=== PATIENT | female | born 1945 | race Caucasian/White ===

== ENCOUNTER 2023-06-14 14:48 | Inpatient (IN) | payer OTHER, SELFPAY ==
[2023-06-14] VITALS (8 sets, daily range): BP systolic 91–152; BP diastolic 55–85; BMI 24.2; BMI 25.3
[2023-06-14] MEDS: TYLENOL 650 MG PO (12:20)
--- NOTE | 2023-06-14 12:23 | ED.GENMED ---
History of Present Illness
General
Chief Complaint: Cold/Flu/URI Symptoms
Time Seen by Provider: 06/14/23 12:10
Travel History
Have you had any contact with someone who has COVID-19?: No
Do you have any symptoms of coronavirus? Fever > 100 degrees, chills, cough, shortness of breath, sore throat, loss of taste or smell, muscle aches, or headache?: No
History of Present Illness
History of Present Illness:
77-year-old female with history of prior stroke presents to the emergency department for evaluation of flulike symptoms developing 2 days ago. Upon awakening today she had increased difficulty breathing and her reportedly checked her pulse
oximetry and it was in the 70s, he called 911 where she was noted to be in the low 80s on room air. A DuoNeb was administered and route she arrives on supplemental oxygen. She states she feels improved and denies any shortness of breath however as
significant adventitious breath sounds. Has no prior lung history. No ill contacts at home. Does not take any anticoagulants currently
Past History
Past History
ED Past Medical History: CVA, HTN, Hypercholesterolemia and Other (gastritis)
ED Past Surgical History: Gynecological and Other (plastics)
Social History
Tobacco: Non-smoker
Alcohol: None
Drug: None
Personal:
Employment: Retired
Review of Systems
Review of Systems
Allergies reviewed?: Yes
All Other Systems: ROS reviewed and negative except as documented in HPI and ROS
Phy Exam
Physical Exam
Physical Exam:
GEN: Well appearing, NAD, WDWN
Eyes: PERRLA, EOMs intact, no scleral icterus
HENT: NCAT, oral mucosa moist
Lungs: Tachypneic, coarse rhonchi heard throughout all lung peoples
Cardiac: RRR, no M/R/G, no peripheral edema. Radial pulses 2+ bilat
Abdomen: S, NT, ND, NABS, no masses or hepatosplenomegaly
Neuro: Alert, oriented to self and place, disoriented to time and events, uncertain baseline. Dense left hemiparesis
MSK: No gross deformity or ecchymosis. No edema. No digital clubbing
Skin: No rashes, petechiae. Normal color, no pallor or jaundice.
Psych: Calm, cooperative, proper hygiene
Course
Orders/Labs/Results
Orders:
Orders
06/14/23 Lunch
NPO
Allow oral meds: Yes
Allow clear liquids: No
NPO with Ice Chips: Yes
06/14/23 12:07
Electrocardiogram (*1) Urgent
Reason for Study: Other
Other Reason for Exam: Respiratory Distress
EKG- Treatment ONCE
IV Insert/Care/Rem.- Treatment PRN
CR Chest Portable - 1 View Urgent
Comment:
Reason For Exam: respiratory distress
Reason Study Needs to be Portable: Patient Unstable
06/14/23 12:15
COVID-19 Antigen Urgent
Source: Nasal Swab
Complete Blood Count/With Diff Urgent
Comprehensive Metabolic Panel Urgent
Lactic Acid Q4H
Comment: WITH 1ST SET OF BLOOD CULTURES,CANCEL 2ND LACTIC ACID IF FIRST <2
NT-proBNP Urgent
Comment: ADD ON
Procalcitonin Urgent
PCT Algorithmm Indication: Respiratory
Blood Culture Q30M
COURTNEY Source: Blood/Venous
Specimen Description:
Comment: FROM SEPARATE SITES
Blood Culture Q30M
COURTNEY Source: Blood/Venous
Specimen Description:
Comment: FROM SEPARATE SITES
Influenza A+B Rapid Molecular Urgent
COURTNEY Source: Nasal Swab
Specimen Description:
06/14/23 12:19
Acetaminophen [Tylenol] 650 mg .ROUTE .STK-MED ONE
06/14/23 12:20
Acetaminophen [Tylenol] 650 mg PO NOW STA
06/14/23 12:21
Ipratropium/Albuterol Sulfate [Duoneb] 3 ml INH R NOW ONE
06/14/23 13:00
Add On- LAB Urgent
Tests Added?: BNP
Piperacillin/Tazo 3.375 Gram [Zosyn] 3.375 gram in 50 ml IV NOW
06/14/23 13:02
Add On- LAB Urgent
Tests Added?: procalcitonin
06/14/23 14:01
D-Dimer Urgent
06/14/23 14:02
0.9% Sodium Chloride 1000 ml [Nss] 1,000 ml IV BOLUS
06/14/23 14:15
Admit/Transfer Patient As Directed
Co-Sign Provider:
Level of Care: Inpatient admission
Assign to:: Telemetry
Physician / Group: Jesse
Diagnosis: Pneumonia with hypoxia
Reason for Telemetry: Other
Other Reason for Telemetry: Hypoxia
Date to Stop Telemetry: 06/16/23
Time to Stop Telemetry: 11:00
Reason for Hospitalization: Above
Expected length of stay greater than two midnights?: Yes
ELOS- Estimated Length of Stay in days: 2
I certify the patient meets the requirements for IP care: Yes
06/14/23 14:17
Code Status As Directed
Resuscitation Status: Full Code
06/14/23 15:29
0.9% Sodium Chloride 1000 ml [Nss] 1,000 ml IV 65 mls/hr
Acetaminophen [Tylenol] 650 mg PO Q4HPRN PRN
Albuterol [ProAIR HFA INHALER] 1 puff INH R BIDPRN PRN
Artificial Tears (Pf) [Refresh Eye Drops (Pf)] 1 drops BOTH EYES BIDPRN PRN
Aspirin Chewable [Low Strength Aspirin] 81 mg PO DAILY
Bisacodyl [Dulcolax] 10 mg RECTAL [id number] PRN
Cholecalciferol (Vitamin D3) [VITAMIN D3 (cholecalciferol)] 50 mcg PO DAILY
Gabapentin [Neurontin] 300 mg PO DAILY
Metoprolol Xl [Toprol Xl] 25 mg PO DAILY
Rosuvastatin Calcium [Crestor] 10 mg PO DAILY
Valsartan [Diovan] 80 mg PO DAILY
06/14/23 15:29
Echo 2D MMode Color/Doppler Routine
Reason for Study: hypoxia
Urinalysis Reflex To Culture Routine
Occupational Therapy Consult [Ot Eval And Treat] Routine
Physical Therapy Consult [Pt Eval And Treat] Routine
Activity Level: As Tolerated
Speech Therapy Eval & Treat Routine
Peripheral Venous Lwr Ext Bilat US [US Periph Venous LOWER Ext Juan] Urgent
Comment:
Reason For Exam: Hypoxia
DX Deep Vein Thrombosis Video Routine
06/14/23 15:38
Calcium Carbonate Chewable [Tums] 500 tablet PO HSPRN PRN
06/14/23 16:00
Ampicillin/Sulbactam 1.5 G [Unasyn] 1.5 gm 0.9% Sodium Chloride [Nss] 50 ml IV Q6H
Heparin 5,000 units SC Q8
06/14/23 18:00
Doxycycline Hyclate [Vibramycin] 100 mg 0.9% Sodium Chloride 250 ml [Nss] 250 ml IV Q12H
Pantoprazole [Protonix] 40 mg PO QPM
06/14/23 20:00
Guaifenesin [Mucinex] 600 mg PO Q12
06/14/23 22:00
Gabapentin [Neurontin] 600 mg PO HS
Oxycodone/Acetaminophen [Percocet 5/325] 1 tablet PO AMHS
Trazodone [Desyrel] 200 mg PO HS
06/15/23 06:00
BMP [Basic Metabolic Panel] IN AM
CBC/With Diff [Complete Blood Count/With Diff] IN AM
06/15/23 08:00
Duloxetine Delayed Release [Cymbalta Delayed Release] 20 mg PO DAILY
06/16/23 11:00
DC Protocol for Telemetry ONCE
Abnormal Lab Results
06/14/23 06/14/23
12:15 14:01
WBC 11.9 H 10^3/uL
(4.8-10.8)
MCH 31.8 H pg
(27.0-31.0)
MPV 10.9 H fL
(7.4-10.4)
Abs Immat Gran (auto) 0.1 H 10^3/uL
(0-0.05)
Absolute Neuts (auto) 10.4 H 10^3/uL
(1.4-6.5)
Absolute Lymphs (auto) 0.8 L 10^3/uL
(1.2-3.4)
Absolute Monos (auto) 0.7 H 10^3/uL
(0.1-0.6)
Immature Gran % 0.6 H %
(0-0.5)
Neutrophils % 86.9 H %
(42.2-75.2)
Lymphocytes % 6.4 L %
(20.5-51.1)
D-Dimer 0.96 H ug/mlFEU
(0.00-0.50)
Glucose 116 H mg/dl
(70-99)
Alkaline Phosphatase 130 H U/L
(38-126)
Procalcitonin 2.22 H* ng/ml
(0.0-0.25)
06/14/23 12:15
06/14/23 12:15
Vital Signs
Initial and Last Documented VS:
Initial Vital Signs
BP Pulse Ox
145/73 84
06/14/23 12:02 06/14/23 12:02
Last Documented Vital Signs
Temp Pulse Resp BP Pulse Ox
97.8 F 95 18 152/85 95
06/14/23 15:00 06/14/23 16:00 06/14/23 16:00 06/14/23 15:00 06/14/23 16:00
MDM/Problems Addressed
MDM/Problems Addressed:
Patient is profoundly hypoxic but does not appear to be in any distress on exam. She has coarse rhonchi heard throughout all peoples which correlates to interstitial infiltrates. Elevated procalcitonin and leukocytosis supported bacterial etiology,
given prior CVA will cover with Zosyn broadly as this will cover any aspiration related issues. Will admit to the hospital service for further management
Comment
Comment:
EKG independently interpreted by me shows a sinus tachycardia at a rate of [address] depressions likely subendocardial ischemia
Chest x-ray independently interpreted by me shows bibasilar interstitial infiltrates
*Critical Care Note
Total Time (30-74mins, 75-104mins- exclusive of procedures): Not Applicable
ED Attending Note
-
Portions of this chart may have been created with voice recognition software.� Occasional wrong word or��sound alike� substitutions may have occurred due to the inherent limitations of voice recognition software.
Discharge Plan
Departure
Patient Disposition: Admit
Date of Disposition: 06/14/23
Time of Disposition: 13:28
Presentation/result/management discussed w/ accepting MD/DO: Hospitalist
Discharge Problem:
Bilateral pneumonia, Acute hypoxemic respiratory failure
Interventions
Interventions:
*Risk Screen - Suicide Last Done: 06/14/23 12:03
*General Assessment Last Done: 06/14/23 12:03
*Neglect/Abuse Screening Last Done: 06/14/23 12:03
ED- Fall Risk Assessment Last Done: 06/14/23 12:03
*ED COVID-19 Vaccine History Last Done: 06/14/23 12:03
*Nursing Disposition Last Done: 06/14/23 15:32
ED- Pulmonary Assessment Last Done: 06/14/23 12:03
Discharge Date and Time
Discharge Date/Time: 06/14/23 15:32
[2023-06-14] MEDS: DUONEB 3 ML INH (12:31)
[2023-06-14 12:37] LABS: % Basophils 0.2 % (0-2); % Eosinophils 0.4 % (0-6); % Immature Granulocytes 0.6 % (0-0.5); % Lymphocytes 6.4 % (20.5-51.1); % Monocytes 5.5 % (1.7-9.3); % Neutrophils 86.9 % (42.2-75.2); Absolute Eosinophils 0.1 10^3/uL (0-0.7); Absolute Immature Granulocytes 0.1 10^3/uL (0-0.05); Absolute Lymphocytes 0.8 10^3/uL (1.2-3.4); Absolute Monocytes 0.7 10^3/uL (0.1-0.6); Absolute Neutrophils 10.4 10^3/uL (1.4-6.5); Hematocrit 40.2 % (37.0-47.0); Hemoglobin 13.5 g/dL (12.0-16.0); Mean Corp Hgb Conc. 33.6 g/dL (33.0-37.0); Mean Corpuscular Hgb 31.8 pg (27.0-31.0); Mean Corpuscular Volume 94.6 fL (81.0-99.0); Mean Platelet Volume 10.9 fL (7.4-10.4); Nucleated Red Blood Cells % 0 %; Platelet Count 177 10^3/uL (130-400); Red Blood Cell Count 4.25 10^6/uL (4.20-5.40); Red Cell Dist. Width 12.5 % (11.5-14.5); White Blood Cell Count 11.9 10^3/uL (4.8-10.8)
[2023-06-14 12:45] LABS: COVID-19 Antigen Negative (Negative)
[2023-06-14 12:48] LABS: Lactic Acid 1.8 mmol/L (0.7-2.0)
[2023-06-14 12:54] LABS: ALT (SGPT) 23 U/L (0-35); AST (SGOT) 34 U/L (14-36); Albumin 4.5 g/dl (3.5-5.0); Alkaline Phosphatase 130 U/L (38-126); Blood Urea Nitrogen 15 mg/dl (7-17); Calcium 9.2 mg/dl (8.4-10.2); Carbon Dioxide 27 mmol/L (22-30); Chloride 99 mmol/L (98-107); Estimated Creatinine Clearance 47 ml/min; Glucose 116 mg/dl (70-99); Sodium 136 mmol/L (135-145); Total Bilirubin 0.9 mg/dl (0.2-1.3); Total Protein 7.7 g/dl (6.3-8.2); eGFR > 60.00
[2023-06-14] MEDS: ZOSYN 50 IV (13:11)
[2023-06-14 13:34] LABS: NT-proBNP 1200 pg/ml
[2023-06-14 13:38] LABS: Procalcitonin 2.22 ng/ml (0.0-0.25)
[2023-06-14] MEDS: NSS 1000 IV ×2 (14:04→17:46)
[2023-06-14 14:21] LABS: D-Dimer 0.96 ug/mlFEU (0.00-0.50)
--- NOTE | 2023-06-14 14:59 | HPS.HSE ---
Family Physician
-
Family Physician: Otis Hernández
Chief Complaint
-
Fever and chills.
Hypoxia
History of Present Illness
Patient is a 77 years old female with history of CVA 6 years ago with left hemiparesis who presents to the emergency room with complaints of fever, chills, pleuritic chest pain. History was taken from patient as well as emergency room staff.
Patient's has been interviewed over the phone in addition. Patient developed fever and chills over the last 24 hours at home. She complains of periodic chest pain. Patient's has been sick with viral illness over the last week.
She denies any loss of consciousness. Denies aspiration events (on careful questioning she denies any cough with oral intake), gastrointestinal or urinary symptoms.
Upon presentation to the emergency room her assessment was consistent with coarse bilateral breath sounds. Patient was found to be hypoxic with pulse ox in the 80s on room air. According to patient she was as low as mid 70s at home.
At the time of our interview patient is hemodynamically stable. Oxygenation improved with pulse ox mid 90s on 6 L of nasal cannula oxygen. She is not in distress.
Medical History
Past Medical History
Past Medical History: Reports Arrhythmia (Questionable paroxysmal A-fib), CVA, HTN and Hypercholesterolemia
Past Surgical History: Reports None
Social History
Tobacco: Non-smoker
Alcohol: None
Drug: Marijuana
Personal:
Living: With Family
Employment: Not Employed
Family History
Family History: Not pertinent
Allergies / Home Medications
Allergies reflects when Allergies were last updated in [employer].
Home Medications with original date entered in [employer]
Allergy/Medication List:
Allergies
Allergy/AdvReac Type Severity Reaction Status Date / Time
No Known Allergies Allergy Verified 04/09/22 12:34
Home Medications
acetaminophen 500 mg tablet (Tylenol Extra Strength) 500 - 1,500 mg PO Q4HPRN PRN mild pain 02/04/18
rosuvastatin 10 mg tablet 10 mg PO DAILY High cholesterol 02/04/18
trazodone 100 mg tablet 200 mg PO HS Sleep 02/04/18
aspirin 81 mg chewable tablet 81 mg PO DAILY Blood clot prevention/tx 05/09/21
gabapentin 300 mg capsule 300 mg PO DAILY Pain 05/09/21
gabapentin 300 mg capsule 600 mg PO HS Pain 05/09/21
metoprolol succinate 25 mg tablet,extended release 24 hr 25 mg PO DAILY Blood pressure 05/09/21
omeprazole 20 mg capsule,delayed release 20 mg PO QPM Gastrointestinal issue 05/09/21
oxycodone-acetaminophen 5 mg-325 mg tablet 1 tab PO AMHS Pain 05/09/21
valsartan 80 mg tablet 80 mg PO DAILY Blood pressure 05/09/21
bisacodyl 10 mg rectal suppository (Dulcolax (bisacodyl)) 10 mg MN [id number] PRN No BM for 2 Days 04/09/22
albuterol sulfate 90 mcg/actuation aerosol inhaler 1 puff inhalation R BIDPRN PRN sob 02/20/23
calcium carbonate 500 mg calcium (1,250 mg) chewable tablet 500 mg PO HSPRN PRN heartburn 02/20/23
cholecalciferol (vitamin D3) 50 mcg (2,000 unit) tablet 50 mcg PO DAILY Supplement 02/20/23
duloxetine 20 mg capsule,delayed release 20 mg PO DAILY Neurological Condition 02/20/23
polyvinyl alcohol-povidone (PF) 1.4 %-0.6 % eye drops in a dropperette (Refresh Classic (PF)) 1 drp BOTH EYES BIDPRN PRN dry eyes 02/20/23
Review of Systems
-
A 12 point ROS was completed and negative except as noted: Yes
Physical Exam
Vital Signs
Vital Signs
Temp Pulse Resp BP Pulse Ox
101.2 F H 117 16 103/58 91
06/14/23 12:06 06/14/23 14:00 06/14/23 14:00 06/14/23 14:00 06/14/23 13:30
Physical Exam
General: Well Developed, Well Nourished and No Apparent Distress
HEENT: NormoCephalic, Moist mucous membranes and Atraumatic
Respiratory: Clear
Cardiac: S1/S2 and Regular Rhythm; No Murmur or Rub
GI: Soft, Non Tender, Non Distended and Normal Bowel Sounds; No Organomegaly
Rectal: Deferred by Provider
Musculoskeletal: No Clubbing, No Cyanosis and No Edema
Skin: No Rash
Neuro: Awake, Alert, Oriented, Facial Droop and Other (Left hemiparesis)
Psych: Calm
Laboratory Results
-
06/14/23 12:15
06/14/23 12:15
Laboratory Results
Lactic Acid Cancelled 06/14/23 16:15
Total Bilirubin 0.9 mg/dl (0.2-1.3) 06/14/23 12:15
AST 34 U/L (14-36) 06/14/23 12:15
ALT 23 U/L (0-35) 06/14/23 12:15
Alkaline Phosphatase 130 U/L (38-126) H 06/14/23 12:15
Impression/Plan
-
IMPRESSION:
Presentation with fever and chills. Pleuritic chest pain.
Acute hypoxic respiratory failure.
Pneumonia, suspect secondary to aspiration.
Conditions prior to admission:
CVA with left hemiparesis
Hypertension
Dyslipidemia
Chronic pain requiring opiates
PLAN:
Acute hypoxic respiratory failure.
Pulse ox on presentation 84% on room air. Improved with nasal cannula supplementation at 6 L
Suspect secondary to aspiration pneumonia.
Chest x-ray on admission consistent with bibasilar interstitial pattern infiltrate.
Patient does have chronically elevated pro CHF BNP, mildly elevated D-dimer noted. With reasonable risk for thromboembolic disease, and also significant hypoxia out of proportion on chest x-ray findings only mild bibasal consolidation check CT scan
of the chest PE protocol.
Continue oxygen supplementation. Currently on 6 L nasal cannula
Aspiration risk
Aspiration pneumonia suspected
N.p.o. pending speech evaluation
Narrow antibiotics to Unasyn with addition of doxycycline.
Mucolytic's
Aspiration precautions.
Continue IV fluids at the maintenance rate while NPO.
Elevated pro CHF BNP
No clinical evidence for volume overload.
Check echocardiogram
Monitor volume status closely
Essential hypertension
Continue preadmission regimen including metoprolol and valsartan.
Chronic pain.
Continue preadmission regimen with gabapentin, Percocet,
Continue trazodone and duloxetine
Status post CVA with left hemiparesis
Continue aspirin
Continue statin
Documented possible history of paroxysmal A-fib, in review of documented ECG patient has been in sinus rhythm.
Full code
DVT prophylaxis heparin.
--- NOTE | 2023-06-14 15:58 | PTOTSP ---
Speech Language Pathology
Pt seen for clinical bedside swallow evaluation. Pt denied any hx of dysphagia. She does not recall whether she had a VSE in the past elsewhere. Pt has had multiple admissions for respiratory issues at . This date, P.O. trials of puree,
regular solids, and thin liquids provided. Adequate mastication, bolus formation, and A-P transit noted with no oral residue. No overt signs of aspiration.
Recommend:
(1) Regular solids/thin liquids
(2) General aspiration precautions
(3) Set-up assist with tray
(4) Meds as tolerated
(5) VSE 06/15 to rule out silent aspiration given multiple admissions for respiratory issues with hx of CVA
(6) SECURITIES CONSULTANT to continue to follow
[2023-06-14] MEDS: UNASYN IV ×2 (17:46→22:48)
[2023-06-14] MEDS: DIOVAN 80 MG PO (17:52)
[2023-06-14] MEDS: CRESTOR 10 MG PO (17:52)
[2023-06-14] MEDS: TOPROL XL 25 MG PO (17:52)
[2023-06-14] MEDS: PROTONIX 40 MG PO (17:52)
[2023-06-14] MEDS: VITAMIN D3 (cholecalciferol) 50 MCG PO (17:52)
[2023-06-14] MEDS: LOW STRENGTH ASPIRIN 81 MG PO (17:52)
[2023-06-14] MEDS: HEPARIN 5000 UNITS SC ×2 (17:53→22:49)
[2023-06-14] MEDS: NEURONTIN 300 MG PO (17:53)
[2023-06-14] MEDS: VIBRAMYCIN 260 MG IV (18:51)
--- NOTE | 2023-06-14 19:49 | PTCARENOTE ---
Pt was brought up to [address] [place], [place] [id number]. room familiarized, call ames within place. as i was doing patients admission, patient stated that she was feeling depressed and suicidal within the last few weeks. Dr. Molina was notified and patient was placed on
a one to one per protocol. pt moved to a private room to accommodate situation.
[2023-06-14] MEDS: PERCOCET 5/325 1 TABLET PO (21:08)
[2023-06-14] MEDS: NEURONTIN 600 MG PO (21:08)
[2023-06-14] MEDS: MUCINEX 600 MG PO (21:08)
[2023-06-14] MEDS: DESYREL 200 MG PO (21:08)
--- NOTE | 2023-06-14 23:53 | PTCARENOTE ---
2 RNs went through patient belongings with patient permission. Patient clothing noted to be in bag. Belonging bag placed in closet. Check performed at 1900 on 06/14/23.
[2023-06-15] VITALS (7 sets, daily range): BP systolic 94–157; BP diastolic 59–95; PULSE 98; O2SAT 98; BMI 25.1
[2023-06-15] MEDS: TYLENOL 650 MG PO ×2 (01:43→17:34)
[2023-06-15] MEDS: UNASYN IV ×4 (04:21→21:23)
[2023-06-15] MEDS: VIBRAMYCIN 260 MG IV ×2 (05:17→18:35)
[2023-06-15] MEDS: MUCINEX 600 MG PO ×2 (08:43→20:18)
[2023-06-15] MEDS: DIOVAN 80 MG PO (08:43)
[2023-06-15] MEDS: PERCOCET 5/325 1 TABLET PO ×2 (08:43→21:15)
[2023-06-15] MEDS: LOW STRENGTH ASPIRIN 81 MG PO (08:43)
[2023-06-15] MEDS: NEURONTIN 300 MG PO (08:43)
[2023-06-15] MEDS: CRESTOR 10 MG PO (08:43)
[2023-06-15] MEDS: VITAMIN D3 (cholecalciferol) 50 MCG PO (08:43)
[2023-06-15] MEDS: CYMBALTA DELAYED RELEASE 20 MG PO (08:43)
[2023-06-15] MEDS: TOPROL XL 25 MG PO (08:43)
[2023-06-15 08:48] LABS: % Basophils 0.2 % (0-2); % Eosinophils 2.1 % (0-6); % Immature Granulocytes 0.4 % (0-0.5); % Lymphocytes 26.1 % (20.5-51.1); % Monocytes 4.4 % (1.7-9.3); % Neutrophils 66.8 % (42.2-75.2); Absolute Eosinophils 0.3 10^3/uL (0-0.7); Absolute Immature Granulocytes 0.1 10^3/uL (0-0.05); Absolute Lymphocytes 3.2 10^3/uL (1.2-3.4); Absolute Monocytes 0.5 10^3/uL (0.1-0.6); Absolute Neutrophils 8.2 10^3/uL (1.4-6.5); Hematocrit 30.6 % (37.0-47.0); Mean Corp Hgb Conc. 32.7 g/dL (33.0-37.0); Mean Corpuscular Hgb 31.4 pg (27.0-31.0); Mean Corpuscular Volume 96.2 fL (81.0-99.0); Mean Platelet Volume 10.8 fL (7.4-10.4); Nucleated Red Blood Cells % 0 %; Platelet Count 157 10^3/uL (130-400); Red Blood Cell Count 3.18 10^6/uL (4.20-5.40); Red Cell Dist. Width 12.9 % (11.5-14.5); White Blood Cell Count 12.3 10^3/uL (4.8-10.8)
[2023-06-15] MEDS: HEPARIN 5000 UNITS SC ×2 (08:57→17:26)
[2023-06-15 09:35] LABS: Blood Urea Nitrogen 19 mg/dl (7-17); Calcium 7.9 mg/dl (8.4-10.2); Carbon Dioxide 25 mmol/L (22-30); Chloride 106 mmol/L (98-107); Estimated Creatinine Clearance 34 ml/min; Glucose 85 mg/dl (70-99); Potassium 3.7 mmol/L (3.5-5.1); Sodium 137 mmol/L (135-145); eGFR 46.62
--- NOTE | 2023-06-15 10:00 | PTOTSP ---
Speech Language Pathology
VIDEOFLUOROSCOPIC SWALLOWING EXAMINATION (VSE) completed. Overall, pt with oropharyngeal swallow WFL. Supraglottic penetration which fully cleared noted with thin liquids via tsp/consecutive cup sips and nectar-thick liquids via tsp. No
aspiration noted during study.
Recommend:
(1) Continue regular solids/thin liquids
(2) General aspiration precautions
(3) Meds as tolerated
(4) SHEAR TENDER to sign off. Please reconsult as indicated.
--- NOTE | 2023-06-15 11:16 | CON.MD ---
Consultation - Medical
-
patient seen chart reviewed. this patient is known to me from a consultaton in 2021. the situation was similar. she was admitted for upper respiratory infection and depression / ?si was noted. she at that time was clear that while she was indeed
depressed and had had intermittently si she had no intention of taking her life. she had made no plans or attempts. the patient comes to this admit w respiratory sx again. she was noted on the questionnaire nursing administers re si to have
suicidal thoughts. again she admitted she was depressed and had thoughts re suicide she would never act upon it bc of her family which includes four kids and eight grands. she was rx last time w prozac. at the time i saw her i suggested
cymbalta as she struggles w chronic pain. prozac did not help and it was dc'ed a month ago by her pain spec and cymbalta 20 mg started. she does feel it has been s./w helpful so far. she can enjoy some activities eg seeing her 7 year old grandsons.
sleep is pretty ok. she takes trazodone for sleep. appetite variable depends on how she is feeling. energy level not great. there is nothing to suggest psychsosis
past psych hx patient has not been hospitalized. depression largely since cva. she has taken prozac and now cymbalta
medical hx cva although the cva did affect her speech originally she communicates very well which i noted also when i saw her in 2021. she has hx htn hld gastritis noted this time and last that she is anemic w hgb of 10 cr 1.2 qtc 437 abn ecg
patient w hx chronic pain and opioid dependence sees a pain specialist. also taking gabapentin
family hx non contributory.
substance abuse denied
social grew up in [place] came to [place] in her 30's lives w who is a retired obgyn four kids eight grands. used to love to garden. her illnesses have prevented this
mse alert ox3 cooperative pleasant yet depressed woman affect constricted admits to si but no intent or plan and would not harm self. no psychosis aver intelligence insight judgment ok
dx major depression recurrent severe chronic pain
recommendations would increase cymbalta to 30 mg need to watch kidney function as w gfr less than 30 adjustments recommended. continue trazodone monitor re serotonin syndrome patient is anemic. could fatigue secondary to anemia but contributing
to depression. would check b12 folate vit d and tsh. psych will follow. does not need one to one at this point.
[2023-06-15 12:54] LABS: Urine Albumin Trace (Neg - Trace); Urine Bilirubin Negative (Negative); Urine Character Clear (Clear); Urine Color Yellow; Urine Glucose Negative (Negative); Urine Ketone Negative (Negative); Urine Leukocyte Negative (Negative); Urine Nitrite Negative (Negative); Urine Occult Blood Negative (Negative); Urine Urobilinogen Negative (Neg - 1+)
--- NOTE | 2023-06-15 13:01 | CM ---
civil engineering manager reviewed patient's chart and met with patient and patient lives with her spouse, a retired physician and her daughter, patient required some assistance with ADL's and ambulates with a cane, or walker, patient also has a w/c, and stair
glide in home. Patient did not require oxygen prior to admission and patient is currently requiring oxygen 4 liters 97%, plan to wean oxygen per physician, physical therapy are recommending home health and options reviewed with patient and daughter
at bedside and they have selected [facility], [facility] liaison contacted.
Pharmacy:[facility]
PCP: Dr. Hernández
Plan; Home with family and [facility], need to watch for oxygen needs.
--- NOTE | 2023-06-15 14:55 | W.PN.HOSP.TC ---
Today's Communication/Plan
-
IV antibiotics
Monitor temperature curve.
Aspiration precautions.
Monitor renal function
Hold valsartan.
Physical/Occupational Therapy evaluation.
Assessment / Plan
Assessment / Plan
IMPRESSION:
Presentation with fever and chills.� Pleuritic chest pain.
Acute hypoxic respiratory failure.
Pneumonia,secondary to aspiration.
Conditions prior to admission:
CVA with left hemiparesis
Hypertension
Dyslipidemia
Chronic pain requiring opiates
PLAN:
Acute hypoxic respiratory failure.
Pulse ox on presentation 84% on room air.� Improved with nasal cannula supplementation at 6 L
Chest x-ray and CT scan consistent with bilateral/bibasilar infiltrates.
Aspiration pneumonia
Initiated on antibiotics: Unasyn
Continue mucolytic's
Continue nebulizers as needed.
Mobilize out of the bath
Attempt to wean off oxygen as tolerates.
Aspiration risk
Aspiration pneumonia suspected
Speech and swallow evaluation/VSE appreciated
Initiated on regular consistency diet with aspiration precautions.
Elevated pro CHF BNP
No clinical evidence for volume overload.
Check echocardiogram
Monitor volume status closely.
Acute kidney injury with elevation of creatinine 1.2.
Suspected secondary to dehydration, acute infection, also watch for possible contrast-induced nephropathy (CT scan on 06/14)
Continue IV hydration
Hold valsartan.
Follow BMP.
Essential hypertension
Preadmission medication regimen with metoprolol and valsartan
Chronic pain.
Continue preadmission regimen with gabapentin, Percocet,
Continue trazodone and duloxetine
Status post CVA with left hemiparesis
Continue aspirin
Continue statin
Documented possible history of paroxysmal A-fib, in review of documented ECG patient has been in sinus rhythm.
Depression
Concern for suicidal ideation upon presentation.
Psychiatry consultation appreciated.
Cymbalta dose increased.
Full code
DVT prophylaxis heparin.
Anticipated Discharge: > 48 hours
Subjective/Interval History
-
Date of Service: June 15, 2023
Objective Data
-
Labs:
Laboratory Results
06/15/23
08:29
WBC 12.3 H
Hgb 10.0 L D
Hct 30.6 L
Plt Count 157
Sodium 137
Potassium 3.7
Chloride 106
Carbon Dioxide 25
BUN 19 H
Creatinine 1.2 H
Glucose 85
Calcium 7.9 L
Vital Signs:
Vital Signs
Temp Pulse Resp BP Pulse Ox
98.1 F 93 20 116/64 94
06/15/23 11:03 06/15/23 11:03 06/15/23 11:03 06/15/23 11:03 06/15/23 11:03
I&O
06/14/23 06/15/23 06/16/23
06:59 06:59 06:59
Intake Total 720 / 720
Balance 720 / 720
Physical Exam
-
General: Well Developed and No Apparent Distress
HEENT: Normocephalic, Atraumatic and Moist Mucous Membranes
Respiratory: Rhonchi; Negative Wheezes
Cardiac: Regular Rhythm and S1/S2; Negative Murmur, Rub or Gallop
GI: Soft, Nontender, Nondistended and Normal Bowel Sounds; Negative Organomegaly
Rectal: Deferred by Provider
Musculoskeletal: No Clubbing, No Cyanosis and No Edema
Skin: Negative Rash
Neuro: Awake, Alert, Oriented and Other (Left hemiparesis)
[2023-06-15 15:31] LABS: Vitamin D, 25-OH*** 56.9 ng/mL (30-80)
[2023-06-15] MEDS: TUMS 1 TABLET PO (15:39)
[2023-06-15 15:44] LABS: TSH Reflex To Free T4 1.19 uIU/ml (0.47-4.68)
[2023-06-15] MEDS: DUONEB 3 ML INH (15:48)
[2023-06-15 16:20] LABS: Folate 5.5 ng/ml (2.76-20); Vitamin B12 422 pg/ml (239-931)
--- NOTE | 2023-06-15 16:25 | VNURNOTE ---
Chart reviewed, patient not ready for discharge.
[facility] referral to be made closer to discharge.
[2023-06-15] MEDS: PROTONIX 40 MG PO (17:26)
[2023-06-15] MEDS: NSS 1000 IV (17:28)
[2023-06-15] MEDS: DESYREL 200 MG PO (21:14)
[2023-06-15] MEDS: NEURONTIN 600 MG PO (21:15)
[2023-06-15] MEDS: HEPARIN SC (23:30)
[2023-06-16] VITALS (8 sets, daily range): BP systolic 115–164; BP diastolic 64–88; PULSE 85; O2SAT 96; BMI 25.8
[2023-06-16] MEDS: UNASYN IV ×4 (03:38→23:23)
[2023-06-16] MEDS: TYLENOL 650 MG PO ×2 (05:05→17:30)
[2023-06-16] MEDS: VIBRAMYCIN 260 MG IV ×2 (05:06→17:04)
[2023-06-16 06:08] LABS: % Basophils 0.3 % (0-2); % Eosinophils 6.2 % (0-6); % Immature Granulocytes 0.3 % (0-0.5); % Lymphocytes 20.3 % (20.5-51.1); % Monocytes 6.2 % (1.7-9.3); % Neutrophils 66.7 % (42.2-75.2); Absolute Eosinophils 0.4 10^3/uL (0-0.7); Absolute Lymphocytes 1.3 10^3/uL (1.2-3.4); Absolute Monocytes 0.4 10^3/uL (0.1-0.6); Absolute Neutrophils 4.3 10^3/uL (1.4-6.5); Hematocrit 28.3 % (37.0-47.0); Hemoglobin 9.4 g/dL (12.0-16.0); Mean Corp Hgb Conc. 33.2 g/dL (33.0-37.0); Mean Corpuscular Hgb 31.6 pg (27.0-31.0); Mean Corpuscular Volume 95.3 fL (81.0-99.0); Mean Platelet Volume 10.7 fL (7.4-10.4); Nucleated Red Blood Cells % 0 %; Platelet Count 143 10^3/uL (130-400); Red Blood Cell Count 2.97 10^6/uL (4.20-5.40); Red Cell Dist. Width 12.8 % (11.5-14.5); White Blood Cell Count 6.5 10^3/uL (4.8-10.8)
[2023-06-16 06:44] LABS: Blood Urea Nitrogen 9 mg/dl (7-17); Carbon Dioxide 23 mmol/L (22-30); Chloride 108 mmol/L (98-107); Estimated Creatinine Clearance 58 ml/min; Glucose 91 mg/dl (70-99); Potassium 3.6 mmol/L (3.5-5.1); Sodium 135 mmol/L (135-145); eGFR > 60.00
[2023-06-16] MEDS: NSS IV (08:41)
[2023-06-16] MEDS: PERCOCET 5/325 1 TABLET PO ×2 (08:42→21:29)
[2023-06-16] MEDS: NEURONTIN 300 MG PO (08:42)
[2023-06-16] MEDS: LOW STRENGTH ASPIRIN 81 MG PO (08:42)
[2023-06-16] MEDS: CRESTOR 10 MG PO (08:42)
[2023-06-16] MEDS: HEPARIN 5000 UNITS SC ×3 (08:43→23:29)
[2023-06-16] MEDS: MUCINEX 600 MG PO ×2 (08:43→20:15)
[2023-06-16] MEDS: VITAMIN D3 (cholecalciferol) 50 MCG PO (08:43)
[2023-06-16] MEDS: TOPROL XL 25 MG PO (09:44)
[2023-06-16] MEDS: CYMBALTA DELAYED RELEASE 30 MG PO (11:21)
[2023-06-16] MEDS: NSS 1000 IV (11:21)
[2023-06-16] MEDS: DUONEB 3 ML INH ×2 (11:59→18:36)
[2023-06-16] MEDS: PROTONIX 40 MG PO (17:04)
--- NOTE | 2023-06-16 18:21 | W.PN.HOSP.TC ---
Today's Communication/Plan
-
follow labs
repeat CXR
Assessment / Plan
Assessment / Plan
IMPRESSION:
Presentation with fever and chills.� Pleuritic chest pain.
Acute hypoxic respiratory failure.
WBC 11.9-->12.3-->6.5k
Pneumonia,secondary to aspiration.
CT of chest: �No evidence of pulmonary embolus. Findings concerning for moderate right lower lobe and mild bilateral upper lobe developing pneumonia. Clinical and laboratory correlation recommended.
Mild bilateral hilar mild subcarinal lymphadenopathy. Likely reactive.
Conditions prior to admission:
CVA with left hemiparesis
Hypertension
Dyslipidemia
Chronic pain requiring opiates
PLAN:
Acute hypoxic respiratory failure.
Pulse ox on presentation 84% on room air.� Improved with nasal cannula supplementation at 6 L
Chest x-ray and CT scan consistent with bilateral/bibasilar infiltrates.
Aspiration pneumonia
Initiated on antibiotics: Unasyn
Continue mucolytic's
Continue nebulizers as needed.
Mobilize out of the bath
Attempt to wean off oxygen as tolerates.
Aspiration risk
Aspiration pneumonia suspected
Speech and swallow evaluation/VSE appreciated
Initiated on regular consistency diet with aspiration precautions.
Elevated pro CHF BNP
No clinical evidence for volume overload.
Check echocardiogram
Monitor volume status closely.
Acute kidney injury with elevation of creatinine 0.9-->1.2-->0.7.
Suspected secondary to dehydration, acute infection, also watch for possible contrast-induced nephropathy (CT scan on 06/14)
Better
Continue IV hydration
Hold valsartan.
Follow BMP.
Essential hypertension
Preadmission medication regimen with metoprolol and valsartan
Chronic pain.
Continue preadmission regimen with gabapentin, Percocet,
Continue trazodone and duloxetine
Status post CVA with left hemiparesis
Continue aspirin
Continue statin
Documented possible history of paroxysmal A-fib, in review of documented ECG patient has been in sinus rhythm.
Depression
Concern for suicidal ideation upon presentation.
Psychiatry consultation appreciated.
Cymbalta dose increased.
Full code
DVT prophylaxis heparin.
Anticipated Discharge: > 48 hours
Subjective/Interval History
-
Date of Service: June 16, 2023
left hemiparesis
Objective Data
-
Labs:
Laboratory Results
06/16/23
05:48
WBC 6.5
Hgb 9.4 L
Hct 28.3 L
Plt Count 143
Sodium 135
Potassium 3.6
Chloride 108 H
Carbon Dioxide 23
BUN 9
Creatinine 0.7
Glucose 91
Calcium 8.0 L
Vital Signs:
Vital Signs
Temp Pulse Resp BP Pulse Ox
97.9 F 82 14 137/74 100
06/16/23 15:00 06/16/23 15:00 06/16/23 15:00 06/16/23 15:00 06/16/23 12:02
I&O
06/15/23 06/16/23 06/17/23
06:59 06:59 06:59
Intake Total 720 / 720 980 / 980
Balance 720 / 720 980 / 980
Review of Systems
-
Constitutional: Denies Fever
EENT: Denies Sore Throat
Respiratory: Reports Cough; Denies Trouble Breathing
Cardiac: Denies Chest Pain
Abdomen/GI: Reports Nausea; Denies Abdominal Pain or Vomiting
Neuro: Reports Headache; Denies Dizzy
Psych: Reports Depressed
Physical Exam
-
General: Well Developed and No Apparent Distress
HEENT: Normocephalic, Atraumatic and Moist Mucous Membranes
Respiratory: Rhonchi; Negative Wheezes
Cardiac: Regular Rhythm and S1/S2; Negative Murmur, Rub or Gallop
GI: Soft, Nontender, Nondistended and Normal Bowel Sounds; Negative Organomegaly
Rectal: Deferred by Provider
Musculoskeletal: No Clubbing, No Cyanosis and No Edema
Skin: Negative Rash
Neuro: Awake, Alert, Oriented and Other (Left hemiparesis)
[2023-06-16] MEDS: DESYREL 200 MG PO (21:24)
[2023-06-16] MEDS: NEURONTIN 600 MG PO (21:26)
[2023-06-17 03:12] VITALS: BP 126/71
[2023-06-17] MEDS: UNASYN IV ×4 (03:20→21:19)
[2023-06-17] MEDS: VIBRAMYCIN 260 MG IV ×2 (05:11→17:27)
[2023-06-17 06:43] LABS: % Basophils 0.2 % (0-2); % Eosinophils 8.2 % (0-6); % Lymphocytes 48.9 % (20.5-51.1); % Monocytes 8.4 % (1.7-9.3); % Neutrophils 34.3 % (42.2-75.2); Absolute Eosinophils 0.4 10^3/uL (0-0.7); Absolute Lymphocytes 2.3 10^3/uL (1.2-3.4); Absolute Monocytes 0.4 10^3/uL (0.1-0.6); Absolute Neutrophils 1.6 10^3/uL (1.4-6.5); Hematocrit 28.3 % (37.0-47.0); Hemoglobin 9.9 g/dL (12.0-16.0); Mean Corpuscular Hgb 32.2 pg (27.0-31.0); Mean Corpuscular Volume 92.2 fL (81.0-99.0); Mean Platelet Volume 10.7 fL (7.4-10.4); Nucleated Red Blood Cells % 0 %; Platelet Count 149 10^3/uL (130-400); Red Blood Cell Count 3.07 10^6/uL (4.20-5.40); Red Cell Dist. Width 12.4 % (11.5-14.5); White Blood Cell Count 4.6 10^3/uL (4.8-10.8)
[2023-06-17 07:02] LABS: Blood Urea Nitrogen 9 mg/dl (7-17); Calcium 8.5 mg/dl (8.4-10.2); Carbon Dioxide 24 mmol/L (22-30); Chloride 106 mmol/L (98-107); Estimated Creatinine Clearance 68 ml/min; Glucose 88 mg/dl (70-99); Potassium 4.1 mmol/L (3.5-5.1); Sodium 138 mmol/L (135-145); eGFR > 60.00
[2023-06-17 08:00] VITALS: BP 149/89
[2023-06-17] MEDS: NSS 1000 IV (08:15)
[2023-06-17] MEDS: NEURONTIN 300 MG PO (08:15)
[2023-06-17] MEDS: CRESTOR 10 MG PO (08:15)
[2023-06-17] MEDS: LOW STRENGTH ASPIRIN 81 MG PO (08:15)
[2023-06-17] MEDS: MUCINEX 600 MG PO ×2 (08:15→20:00)
[2023-06-17] MEDS: CYMBALTA DELAYED RELEASE 30 MG PO (08:16)
[2023-06-17] MEDS: HEPARIN 5000 UNITS SC ×3 (08:16→23:38)
[2023-06-17] MEDS: VITAMIN D3 (cholecalciferol) 50 MCG PO (08:16)
[2023-06-17] MEDS: PERCOCET 5/325 1 TABLET PO ×2 (08:16→21:19)
[2023-06-17] MEDS: TOPROL XL 25 MG PO (08:24)
[2023-06-17] MEDS: DUONEB 3 ML INH (12:08)
[2023-06-17 13:00] VITALS: BP 144/86
--- NOTE | 2023-06-17 15:24 | W.PN.HOSP.TC ---
Today's Communication/Plan
-
dc IVF
continue IV abx, with potential transition to oral next 24 hrs
Assessment / Plan
Assessment / Plan
IMPRESSION:
Presentation with fever and chills.� Pleuritic chest pain.
Acute hypoxic respiratory failure.
WBC 11.9-->12.3-->6.5-->4.6k
Pneumonia,secondary to aspiration.
06/15 VSE: Some penetration noted with thin liquids and nectar consistency but no aspiration. No esophageal emptying which cleared with thin liquid wash.
CT of chest: �No evidence of pulmonary embolus. Findings concerning for moderate right lower lobe and mild bilateral upper lobe developing pneumonia. Clinical and laboratory correlation recommended.
Mild bilateral hilar mild subcarinal lymphadenopathy. Likely reactive.
On examination, pt continues to sound congested. ?chronic low level aspiration. CXR does not demonstrate active PNA, hypoxemia resolved, no fever. Probably approaching point where can transition to oral abx
Plan apparently is home with VN. Pt is at risk for recurrence of pulmonary condition as she is post CVA.
Conditions prior to admission:
CVA with left hemiparesis
Hypertension
Dyslipidemia
Chronic pain requiring opiates
PLAN:
Acute hypoxic respiratory failure.
Pulse ox on presentation 84% on room air.� Improved, now on room air with SaO2 97%
Chest x-ray and CT scan consistent with bilateral/bibasilar infiltrates.
06/17 CXR: Findings suggesting some right-sided pneumonia on prior CTA Chest not discretely identified on this study or prior chest radiograph of same day as CT.
Aspiration pneumonia
Remains on antibiotics: Unasyn
Continue mucolytic's
Continue nebulizers as needed.
Aspiration risk
Aspiration pneumonia suspected
Speech and swallow evaluation/VSE appreciated
Initiated on regular consistency diet with aspiration precautions.
Elevated pro BNP
No clinical evidence for volume overload.
echocardiogram: Normal biventricular size and systolic function without regional wall motion
�abnormality. Estimated LVEF 55-60%.
�Mild/moderate tricuspid regurgitation. Normal PASP.
Monitor volume status closely.
Acute kidney injury with elevation of creatinine better 0.9-->1.2-->0.7.
Suspected secondary to dehydration, acute infection, also watch for possible contrast-induced nephropathy (CT scan on 06/14)
stop IV hydration
Hold valsartan.
Follow BMP.
Essential hypertension
Preadmission medication regimen with metoprolol and valsartan
Valsartan on hold, will stop IVF, consider resumption of Valsartan pending BP response next 24 hrs
Chronic pain.
Continue preadmission regimen with gabapentin, Percocet,
Continue trazodone and duloxetine
Status post CVA with left hemiparesis
Continue aspirin
Continue statin
Documented possible history of paroxysmal A-fib, in review of documented ECG patient has been in sinus rhythm.
Depression
Concern for suicidal ideation upon presentation.
Psychiatry consultation appreciated.
Cymbalta dose increased.
Full code
DVT prophylaxis heparin.
Anticipated Discharge: 24 - 48 hours
Subjective/Interval History
-
Date of Service: June 17, 2023
awake alert
Objective Data
-
Labs:
Laboratory Results
06/17/23
05:44
WBC 4.6 L
Hgb 9.9 L
Hct 28.3 L
Plt Count 149
Sodium 138
Potassium 4.1
Chloride 106
Carbon Dioxide 24
BUN 9
Creatinine 0.6
Glucose 88
Calcium 8.5
Vital Signs:
Vital Signs
Temp Pulse Resp BP Pulse Ox
98.2 F 93 18 144/86 97
06/17/23 13:00 06/17/23 13:00 06/17/23 13:00 06/17/23 13:00 06/17/23 13:00
I&O
06/16/23 06/17/23 06/18/23
06:59 06:59 06:59
Intake Total 980 / 980 360 / 360
Balance 980 / 980 360 / 360
Review of Systems
-
Constitutional: Denies Fever
EENT: Denies Sore Throat
Respiratory: Reports Cough; Denies Trouble Breathing
Cardiac: Denies Chest Pain
Abdomen/GI: Reports Nausea; Denies Abdominal Pain or Vomiting
Neuro: Reports Headache; Denies Dizzy
Psych: Reports Depressed
Physical Exam
-
General: Well Developed and No Apparent Distress
HEENT: Normocephalic, Atraumatic and Moist Mucous Membranes
Respiratory: Wheezes (coarse wheeze with good air movement) and Rhonchi
Cardiac: Regular Rhythm and S1/S2; Negative Murmur, Rub or Gallop
GI: Soft, Nontender, Nondistended and Normal Bowel Sounds; Negative Organomegaly
Musculoskeletal: No Clubbing, No Cyanosis and No Edema
Skin: Negative Rash
Neuro: Awake, Alert, Oriented and Other (Left hemiparesis)
[2023-06-17] MEDS: TYLENOL 650 MG PO (15:34)
[2023-06-17 16:00] VITALS: BP 163/106
[2023-06-17] MEDS: PROTONIX 40 MG PO (17:27)
--- NOTE | 2023-06-17 18:23 | W.PN.UPDATE ---
Update Note
Progress Note Update
Pt seen & evaluated at bedside. Tolerating increase in cymbalta well, denies any side effects. Not yet seeing much change in mood, but it has only been a few days at best which she is understanding of. Overall does remain depressed, though able to
joke a bit a smile appropriately today. Sleep is poor, though this seems to be more so due to being awoken for vitals/meds/labs etc and having hard time falling back asleep.
Continue cymbalta 30mg & standing trazodone. Pt agreeable to prn trazodone for times when she is unable to fall back asleep. Ordering 25mg prn once a day.
[2023-06-17] MEDS: NEURONTIN 600 MG PO (21:19)
[2023-06-17] MEDS: DESYREL 200 MG PO (21:19)
[2023-06-17 23:00] VITALS: BP 149/93
[2023-06-18] MEDS: UNASYN IV ×2 (03:03→10:04)
[2023-06-18] MEDS: VIBRAMYCIN 260 MG IV (05:12)
[2023-06-18 07:40] VITALS: BP 141/79
[2023-06-18] MEDS: LOW STRENGTH ASPIRIN 81 MG PO (10:03)
[2023-06-18] MEDS: NEURONTIN 300 MG PO (10:03)
[2023-06-18] MEDS: MUCINEX 600 MG PO ×2 (10:03→19:43)
[2023-06-18] MEDS: PERCOCET 5/325 1 TABLET PO ×2 (10:03→21:13)
[2023-06-18] MEDS: FLUSH (NSS) 1 FLUSH IV (10:04)
[2023-06-18] MEDS: VITAMIN D3 (cholecalciferol) 50 MCG PO (10:04)
[2023-06-18] MEDS: CYMBALTA DELAYED RELEASE 30 MG PO (10:05)
[2023-06-18] MEDS: TOPROL XL 25 MG PO (10:05)
[2023-06-18] MEDS: HEPARIN 5000 UNITS SC ×3 (10:05→23:22)
[2023-06-18] MEDS: CRESTOR 10 MG PO (10:06)
--- NOTE | 2023-06-18 10:28 | CM ---
cash manager reviewed patient's chart and plan is to home with spouse and daughter and [facility], [facility] contacted.
Plan; Home and [facility].
--- NOTE | 2023-06-18 12:03 | VNURNOTE ---
Home Health Liaison met with patient and spouse 06/15 to discuss [facility] nurse/therapy, visits, schedule and homebound status. Both are agreeable and understand that visits at home will be 2-3 x per week to assess and teach medical management.
[facility] brochure provided with contact information. Patient is aware that [facility] will contact them for start of care in 1-2 days after discharge from .
[facility] referral completed in [facility].
[2023-06-18 14:33] VITALS: BP 166/96; PULSE 81
[2023-06-18] MEDS: TYLENOL 650 MG PO ×2 (14:34→19:42)
[2023-06-18 15:30] VITALS: BP 144/92
--- NOTE | 2023-06-18 15:45 | W.PN.HOSP.TC ---
Today's Communication/Plan
-
Transition to oral antibiotics/Augmentin
Continue aspiration precautions.
Physical therapy elevation
Discharge planning likely home with home PT.
Check iron levels
Assessment / Plan
Assessment / Plan
IMPRESSION:
Presentation with fever and chills.� Pleuritic chest pain.
Acute hypoxic respiratory failure.
Pneumonia,secondary to aspiration.
Conditions prior to admission:
CVA with left hemiparesis
Hypertension
Dyslipidemia
Chronic pain requiring opiates
Chronic normocytic anemia
PLAN:
Acute hypoxic respiratory failure.
Pulse ox on presentation 84% on room air.� Improved with nasal cannula supplementation at 6 L
Chest x-ray and CT scan consistent with bilateral/bibasilar infiltrates.
Aspiration pneumonia
Initiated on antibiotics: Unasyn/doxycycline. With improved respiratory status will transition to oral Augmentin to complete total of 10-day course of therapy.
Continue mucolytic's
Continue nebulizers as needed.
Mobilize out of the bath
Attempt to wean off oxygen as tolerates.
Aspiration risk
Aspiration pneumonia suspected
Speech and swallow evaluation/VSE appreciated
Initiated on regular consistency diet with aspiration precautions.
Elevated pro CHF BNP
No clinical evidence for volume overload.
Echocardiogram with preserved biventricular function
Acute kidney injury with elevation of creatinine 1.2.
Suspected secondary to dehydration, acute infection, also watch for possible contrast-induced nephropathy (CT scan on 06/14)
Renal function improved and stable.
Resume losartan.
Monitor blood pressure trend
Essential hypertension
Preadmission medication regimen with metoprolol and valsartan
Chronic pain.
Continue preadmission regimen with gabapentin, Percocet,
Continue trazodone and duloxetine
Status post CVA with left hemiparesis
Continue aspirin
Continue statin
Documented possible history of paroxysmal A-fib, in review of documented ECG patient has been in sinus rhythm.
Chronic normocytic anemia
Initial hemoglobin at 13 due to hemoconcentration came down to 10 and stable.
Will check iron studies.
Depression
Concern for suicidal ideation upon presentation.
Psychiatry consultation appreciated.
Cymbalta dose increased.
Full code
DVT prophylaxis heparin.
Anticipated Discharge: Within 24 hours
Subjective/Interval History
-
Date of Service: June 18, 2023
Objective Data
-
Vital Signs:
Vital Signs
Temp Pulse Resp BP Pulse Ox
98.3 F 84 16 141/79 95
06/18/23 07:40 06/18/23 10:05 06/18/23 07:40 06/18/23 10:05 06/18/23 09:57
I&O
06/17/23 06/18/23 06/19/23
06:59 06:59 06:59
Intake Total 360 / 360 840 / 840 120 / 120
Output Total 450 / 450 1100 / 1100
Balance 360 / 360 390 / 390 -980 / -980
Physical Exam
-
General: Well Developed and No Apparent Distress
HEENT: Normocephalic, Atraumatic and Moist Mucous Membranes
Respiratory: Clear to Auscultation
Cardiac: Regular Rhythm and S1/S2; Negative Murmur, Rub or Gallop
GI: Soft, Nontender, Nondistended and Normal Bowel Sounds; Negative Organomegaly
Rectal: Deferred by Provider
Musculoskeletal: No Clubbing, No Cyanosis and No Edema
Skin: Negative Rash
Neuro: Awake, Alert and Oriented
[2023-06-18 16:19] LABS: Iron 67 ug/dl (37-170)
--- NOTE | 2023-06-18 16:25 | PTCARENOTE ---
Pt AAO x3, moves Rt side well; LUE/LLE very weak; has slight movement Lt foot at times; foot drop. OOB to chair with assist x2/cane/Lt lower leg brace; assists with positioning. VSS. On nc 2 lpm- pulse ox 94%, no SOB noted. Abd large, rounded,
otoniel PO well. Incont large amts clear yellow urine; Purewick catheter changed. Resting comfortably at present, no c/o. Will continue to monitor.
[2023-06-18 16:30] LABS: Percent Saturation 40 % (20-50); Total Iron Binding Capacity 164 ug/dl (265-497)
[2023-06-18] MEDS: PROTONIX 40 MG PO (17:44)
[2023-06-18] MEDS: AUGMENTIN 875 MG/125 MG 1 TABLET PO (19:43)
[2023-06-18 19:49] VITALS: BP 159/90
[2023-06-18] MEDS: NEURONTIN 600 MG PO (21:12)
[2023-06-18] MEDS: DESYREL 200 MG PO (21:13)
[2023-06-18 23:00] VITALS: BP 156/94
[2023-06-19] MEDS: DIOVAN 80 MG PO (08:19)
[2023-06-19] MEDS: LOW STRENGTH ASPIRIN 81 MG PO (08:20)
[2023-06-19] MEDS: AUGMENTIN 875 MG/125 MG 1 TABLET PO ×2 (08:20→20:53)
[2023-06-19] MEDS: CYMBALTA DELAYED RELEASE 30 MG PO (08:20)
[2023-06-19] MEDS: CRESTOR 10 MG PO (08:20)
[2023-06-19] MEDS: TOPROL XL 25 MG PO (08:21)
[2023-06-19] MEDS: MUCINEX 600 MG PO ×2 (08:21→20:53)
[2023-06-19] MEDS: PERCOCET 5/325 1 TABLET PO ×2 (08:21→20:53)
[2023-06-19] MEDS: VITAMIN D3 (cholecalciferol) 50 MCG PO (08:21)
[2023-06-19] MEDS: NEURONTIN 300 MG PO (08:21)
[2023-06-19 08:22] VITALS: BP 154/99
[2023-06-19] MEDS: HEPARIN 5000 UNITS SC ×2 (08:22→16:43)
[2023-06-19] MEDS: TYLENOL 650 MG PO ×2 (12:45→16:45)
--- NOTE | 2023-06-19 12:58 | PN.CDI ---
CDI
- -
CDI:
Physician Documentation Request
Admit Date: 06/14/23 14:48
Dear Doctor Jesse,
Patient admitted with aspiration pneumonia.
06/15 Hospitalist PN: 'Acute hypoxic respiratory failure...Acute kidney injury with elevation of creatinine 1.2. Suspected secondary to dehydration, acute infection'
06/14/23
12:06
Temp 101.2 F H
06/14/23
12:03 06/14/23
12:45 06/14/23
14:00
Pulse 123 127 117
06/14/23
12:03 06/14/23
12:30 06/14/23
13:00
Resp Rate
Please clarify which of the following most accurately describes the status of the patient's infection:
Sepsis, POA
- Systemic manifestations of infection, with 2 or more SIRS criteria which include:
- Fever >100.4 degrees F or hypothermia < 96.8 degrees F
- Leukocytosis - WBC > 12,000 or leukopenia - WBC < 4,000 or > 10% bands
- Tachycardia > 90 beats per minute
- Tachypnea - RR > 20 breaths per minute or PaCO2 , 32mmHg
Source: Merck Manual 2013
Severe Sepsis
- Sepsis with associated acute organ dysfunction, such as renal or respiratory failure
- Documentation should indicate the association between the sepsis and the organ dysfunction
Pneumonia Only, Without Systemic Illness
- indicate the site/source, such as UTI, pneumonia etc.
Other
Use of terms such as suspected, likely, concern for, or probable (associated with a specific diagnosis that is being evaluated, monitored, or treated as if it exists) are acceptable and can be coded in the inpatient setting, when documented at the
time of discharge.
Thank you,
Ayanna Rinaldi RN, BSN
CDI Specialist
Available via [place] text
Please use your independent medical judgment in providing your response.
--- NOTE | 2023-06-19 13:17 | W.DS.TRANS ---
DC Summary - [employer]
-
Discharge Instructions:
Discharge Diagnosis/Procedures IMPRESSION:
Presentation with fever and chills. Pleuritic
chest pain.
Acute hypoxic respiratory failure.
Pneumonia,secondary to aspiration.
Conditions prior to admission:
CVA with left hemiparesis
Hypertension
Dyslipidemia
Chronic pain requiring opiates
Chronic normocytic anemia
Diet Regular
Instructions:
Stand-Alone Forms:
Changes to Home Medications: Yes
Discharge Medications:
DC Medications w/original date entered in [employer]
acetaminophen 500 mg tablet (Tylenol Extra Strength) 500 - 1,500 mg PO Q4HPRN PRN mild pain 02/04/18
rosuvastatin 10 mg tablet 10 mg PO DAILY High cholesterol 02/04/18
trazodone 100 mg tablet 200 mg PO HS Sleep 02/04/18
aspirin 81 mg chewable tablet 81 mg PO DAILY Blood clot prevention/tx 05/09/21
gabapentin 300 mg capsule 300 mg PO DAILY Pain 05/09/21
gabapentin 300 mg capsule 600 mg PO HS Pain 05/09/21
metoprolol succinate 25 mg tablet,extended release 24 hr 25 mg PO DAILY Blood pressure 05/09/21
omeprazole 20 mg capsule,delayed release 20 mg PO QPM Gastrointestinal issue 05/09/21
oxycodone-acetaminophen 5 mg-325 mg tablet 1 tab PO AMHS Pain 05/09/21
valsartan 80 mg tablet 80 mg PO DAILY Blood pressure 05/09/21
bisacodyl 10 mg rectal suppository (Dulcolax (bisacodyl)) 10 mg MA [id number] PRN No BM for 2 Days 04/09/22
albuterol sulfate 90 mcg/actuation aerosol inhaler 1 puff inhalation R BIDPRN PRN sob 02/20/23
calcium carbonate 500 mg calcium (1,250 mg) chewable tablet 500 mg PO HSPRN PRN heartburn 02/20/23
cholecalciferol (vitamin D3) 50 mcg (2,000 unit) tablet 50 mcg PO DAILY Supplement 02/20/23
polyvinyl alcohol-povidone (PF) 1.4 %-0.6 % eye drops in a dropperette (Refresh Classic (PF)) 1 drp BOTH EYES BIDPRN PRN dry eyes 02/20/23
amoxicillin 875 mg-potassium clavulanate 125 mg tablet 1 tab PO Q12 #10 tabs 06/19/23
duloxetine 30 mg capsule,delayed release 30 mg PO DAILY #30 caps 06/19/23
Home Medication Changes
Complete antibiotics course.
Duloxetine dose increased
Pending Results: No
--- NOTE | 2023-06-19 13:22 | CM ---
Addendum entered by Cookie Jang 06/19/23 14:03:
Patietn will need home oxygen evaluation, per spouse he plans on transporting patient when stable.
Original Note:
Plan is home today with [facility].
Plan; Home with [facility]
[2023-06-19 13:30] VITALS: BP 158/101; BP 161/92; PULSE 72; O2SAT 93
[2023-06-19 13:37] VITALS: BP 158/101; BP 161/92; PULSE 79; O2SAT 93
[2023-06-19 15:27] VITALS: BP 152/77
[2023-06-19 15:37] VITALS: BP 158/101; BP 161/92; PULSE 79; O2SAT 93
[2023-06-19] MEDS: PROTONIX 40 MG PO (17:12)
--- NOTE | 2023-06-19 18:11 | W.PN.HOSP.TC ---
Today's Communication/Plan
-
Transition to oral antibiotics
Continue physical therapy
Discharge planning including home O2 set up.
Assessment / Plan
Assessment / Plan
IMPRESSION:
Presentation with fever and chills.� Pleuritic chest pain.
Acute hypoxic respiratory failure.
Pneumonia,secondary to aspiration.
Conditions prior to admission:
CVA with left hemiparesis
Hypertension
Dyslipidemia
Chronic pain requiring opiates
Chronic normocytic anemia
PLAN:
Acute hypoxic respiratory failure.
Pulse ox on presentation 84% on room air.�
Chest x-ray and CT scan consistent with bilateral/bibasilar infiltrates.
Aspiration pneumonia
Initiated on antibiotics: Unasyn/doxycycline. With improved respiratory status will transition to oral Augmentin to complete total of 10-day course of therapy.
Continue mucolytic's
Continue nebulizers as needed.
Mobilize out of the bath
Home O2 assessment prior to discharge on 06/19 with patient desaturating down to 87% on room air while at rest.
Patient is in need of oxygen on exertion due to pulse oximetry of 87% on room air at res.
Patient was placed on 2L O2 via nasal cannula with saturation of 95%. Oxygen will help to improve hypoxemia.
Patient is mobile within the home. Albuterol therapy has been discussed and is ineffective in treating hypoxemia-related symptoms.
Oxygen will improve the patient's symptoms.
Aspiration risk
Aspiration pneumonia suspected
Speech and swallow evaluation/VSE appreciated
Initiated on regular consistency diet with aspiration precautions.
Elevated pro CHF BNP
No clinical evidence for volume overload.
Echocardiogram with preserved biventricular function
Acute kidney injury with elevation of creatinine 1.2.
Suspected secondary to dehydration, acute infection, also watch for possible contrast-induced nephropathy (CT scan on 06/14)
Renal function improved and stable.
Resume losartan.
Monitor blood pressure trend
Essential hypertension
Preadmission medication regimen with metoprolol and valsartan
Chronic pain.
Continue preadmission regimen with gabapentin, Percocet,
Continue trazodone and duloxetine
Status post CVA with left hemiparesis
Continue aspirin
Continue statin
Documented possible history of paroxysmal A-fib, in review of documented ECG patient has been in sinus rhythm.
Chronic normocytic anemia
Initial hemoglobin at 13 due to hemoconcentration came down to 10 and stable.
Will check iron studies.
Depression
Concern for suicidal ideation upon presentation.
Psychiatry consultation appreciated.
Cymbalta dose increased.
Full code
DVT prophylaxis heparin.
Anticipated Discharge: 24 - 48 hours
Subjective/Interval History
-
Date of Service: June 19, 2023
Objective Data
-
Vital Signs:
Vital Signs
Temp Pulse Resp BP Pulse Ox
97.8 F 88 16 152/77 91
06/19/23 15:27 06/19/23 15:27 06/19/23 15:27 06/19/23 15:27 06/19/23 15:27
I&O
06/18/23 06/19/23 06/20/23
06:59 06:59 06:59
Intake Total 840 / 840 960 / 960 480 / 480
Output Total 450 / 450 2800 / 2800 1000 / 1000
Balance 390 / 390 -1840 / -1840 -520 / -520
Physical Exam
-
General: Well Developed and No Apparent Distress
HEENT: Normocephalic, Atraumatic and Moist Mucous Membranes
Respiratory: Clear to Auscultation
Cardiac: Regular Rhythm and S1/S2; Negative Murmur, Rub or Gallop
GI: Soft, Nontender, Nondistended and Normal Bowel Sounds; Negative Organomegaly
Rectal: Deferred by Provider
Musculoskeletal: No Clubbing, No Cyanosis and No Edema
Skin: Negative Rash
Neuro: Nonfocal/Grossly Intact
[2023-06-19] MEDS: NEURONTIN 600 MG PO (20:52)
[2023-06-19] MEDS: DESYREL 200 MG PO (20:53)
[2023-06-19] MEDS: HEPARIN SC (23:09)
[2023-06-19 23:18] VITALS: BP 153/83
[2023-06-20 07:55] VITALS: BP 154/76
[2023-06-20] MEDS: AUGMENTIN 875 MG/125 MG 1 TABLET PO (08:38)
[2023-06-20] MEDS: CYMBALTA DELAYED RELEASE 30 MG PO (08:38)
[2023-06-20] MEDS: MUCINEX 600 MG PO (08:38)
[2023-06-20] MEDS: LOW STRENGTH ASPIRIN 81 MG PO (08:39)
[2023-06-20] MEDS: NEURONTIN 300 MG PO (08:39)
[2023-06-20] MEDS: TOPROL XL 25 MG PO (08:39)
[2023-06-20] MEDS: PERCOCET 5/325 1 TABLET PO (08:39)
[2023-06-20] MEDS: DIOVAN 80 MG PO (08:40)
[2023-06-20] MEDS: CRESTOR 10 MG PO (08:40)
[2023-06-20] MEDS: HEPARIN 5000 UNITS SC (08:40)
[2023-06-20] MEDS: VITAMIN D3 (cholecalciferol) 50 MCG PO (08:40)
--- NOTE | 2023-06-20 10:31 | CM ---
Addendum entered by Cookie Jang 06/20/23 12:30:
Patient's spouse will be at the hospital today to pick patient up at 1:30pm.
Original Note:
human relations manager reviewed patient's chart and plan is for patient to return to home today, patient has been set up with [facility], patient will also need home oxygen. Testing completed. Per spouse he plans on transporting patient to home today with help from
his daughter.
Plan; Home with [facility] and patient is new to oxygen.
--- NOTE | 2023-06-20 11:47 | W.PN.UPDATE ---
Update Note
Progress Note Update
patient seen chart reviewed. mrs duckworth reports she is feeling better both physically and psychologically. she is hoping for dc to home today. her cymbalta was increased to 30 mg reminded her that it can be increased should she feel more depressed
or with increased physical pain. psych will sign off given imminent dc and at this point depression seems improved.
--- NOTE | 2023-06-20 13:53 | VNURNOTE ---
Home O2 ordered with [employer], all info faxed at [phone], confirmed receipt at [phone].
Portable tank delivered to patient room by 1200. Patient was given contact number for [employer] and understands to call once home for concentrator delivery.
== END 2023-06-20 14:30 | disposition home health service (06) | DRG 177 ==
LOC: 4 WEST ACU 14:48
PROVIDERS: Internal Medicine; Physician Assistant; ADMITTING PHYSICIAN Internal Medicine; CONSULT PHYSICIAN Psychiatry & Neurology Psychiatry; EMERGENCY PHYSICIAN Student in an Organized Health Care Education/Training Program; FAMILY PHYSICIAN Internal Medicine
DX: J69.0 Pneumonitis due to inhalation of food and vomit (principal); J96.01 Acute respiratory failure with hypoxia; I69.354 Hemiplegia and hemiparesis following cerebral infarction affecting left non-dominant side; N17.9 Acute kidney failure, unspecified; I24.89 Other forms of acute ischemic heart disease; F11.20 Opioid dependence, uncomplicated; R45.851 Suicidal ideations; E78.00 Pure hypercholesterolemia, unspecified; I50.9 Heart failure, unspecified; D64.9 Anemia, unspecified; I11.0 Hypertensive heart disease with heart failure; I48.0 Paroxysmal atrial fibrillation; G89.4 Chronic pain syndrome; E86.0 Dehydration; F32.A Depression, unspecified; Z79.82 Long term (current) use of aspirin; Z11.52 Encounter for screening for COVID-19
CPT/HCPCS: 71045; 71046; 71275; 74230; 80048; 80053; 81003; 82306; 82607; 82728; 82746; 83540; 83550; 83605; 83880; 84145; 84443; 85025; 85379; 87040; 87502; 87811; 92610; 92611; 93005; 93306; 93970; 94640; 97116; 97162; 97167; 97530; 97535; 99285; Q9967